=== PATIENT | male | born 1975 | race Caucasian/White ===

== ENCOUNTER 2020-05-27 09:13 | Outpatient (CLI) | payer OTHER, SELFPAY ==
[2020-05-27 09:27] LABS: Basophils Absolute Auto 0.01 K/mm3 (0.00-0.10); Basophils Percent Auto 0.2 % (0.0-1.0); Eosinophils Absolute Auto 0.11 K/mm3 (0.02-0.50); Eosinophils Percent Auto 1.8 % (1.0-6.0); Hematocrit 40.4 % (40.0-54.0); Hemoglobin 14.7 g/dL (14.0-18.0); Immature Granulocyte Absolute 0.02 K/mm3 (0.00-0.00); Immature Granulocyte Percent A 0.3 % (0.0-0.0); Lymphocytes Absolute Auto 1.49 K/mm3 (1.10-4.50); Lymphocytes Percent Auto 24.2 % (18.0-42.0); Mean Corpuscular HGB Conc 36.4 g/dL (32.0-36.0); Mean Corpuscular Hemoglobin 34.2 pg (27.0-31.0); Mean Platelet Volume 8.6 fl (8.7-11.0); Monocytes Absolute Auto 0.43 K/mm3 (0.10-0.90); Neutrophils Absolute Auto 4.1 K/mm3 (1.7-7.2); Neutrophils Percent Auto 66.5 % (50.0-70.0); Platelet Count Result 185 K/mm3 (150-420); Red Cell Distribution Width 11.9 % (11.6-14.4); White Blood Count 6.2 K/mm3 (4.8-10.8)
[2020-05-27 09:33] LABS: Appearance Urine Clear (Clear); Bilirubin Urine Negative (Negative); Color Urine Yellow (Yellow); Glucose Urine UA Negative (Negative); Ketones Urine Negative (Negative); Leukocyte Esterase Ur Negative (Negative); Nitrate Urine Negative (Negative); Protein Urine Negative (Negative); Specific Grav Ur <= 1.005 (1.010-1.020); Urobilinogen Urine 0.2 mg/dL (0.2-1.0)
[2020-05-27 09:49] LABS: Add Urine Microscopic? YES; Bacteria Urine None seen /hpf; Blood Urine Trace-Intact (Negative); RBC Urine None seen /hpf (0-2); Squamous Epithelial Cell Urine Rare /hpf (Few); WBC Urine None seen /hpf (0-3)
[2020-05-27 10:53] LABS: Alanine Aminotransferase 46 U/L (16-63); Albumin Level 4.6 g/dL (3.4-5.0); Alkaline Phosphatase 70 U/L (46-116); Anion Gap 9 mmol/L (8-16); Aspartate Amino Transferase 23 U/L (15-37); Bilirubin,Total 0.4 mg/dL (0.00-1.00); Blood Urea Nitrogen 22 mg/dL (7-18); Calcium 8.6 mg/dL (8.5-10.1); Carbon Dioxide 28 mmol/L (21-32); Chloride 103 mmol/L (98-108); Cholesterol 150 mg/dL (0-200); Estimated Glomerular Filt Rate > 60; Glucose 99 mg/dL (70-99); HDL Direct 24 mg/dL (40-60); Osmolality Calculated 293 mOsm/kg (285-295); Potassium 3.8 mmol/L (3.5-5.1); Sodium 140 mmol/L (136-145); Thyroid Stimulating Hormone 1.46 uIU/mL (0.36-3.74); Total Protein 7.2 g/dL (6.4-8.2)
[2020-05-27 10:57] LABS: LDL Cholesterol Calculated 28 mg/dL (<130); Triglycerides 489 mg/dL (0-150)
[2020-05-27 11:10] LABS: LDL Cholesterol Direct 59 mg/dL (0-130)
== END 2020-05-27 09:14 | disposition home or self-care (01) ==
PROVIDERS: PCP Internal Medicine; Visit Provider Internal Medicine
DX: Z00.00 Encounter for general adult medical examination without abnormal findings (principal); I10 Essential (primary) hypertension
CPT/HCPCS: 36415; 80053; 80061; 81001; 83721; 84443; 85025

== ENCOUNTER 2022-06-06 08:59 | Outpatient (CLI) | payer OTHER, SELFPAY ==
[2022-06-06 09:12] LABS: Appearance Urine Clear (Clear); Basophils Absolute Auto 0.01 K/mm3 (0.00-0.10); Basophils Percent Auto 0.2 % (0.0-1.0); Bilirubin Urine Negative (Negative); Eosinophils Absolute Auto 0.11 K/mm3 (0.02-0.50); Eosinophils Percent Auto 1.7 % (1.0-6.0); Glucose Urine UA Negative (Negative); Hematocrit 39.3 % (40.0-54.0); Hemoglobin 14.5 g/dL (14.0-18.0); Immature Granulocyte Absolute 0.03 K/mm3 (0.00-0.00); Immature Granulocyte Percent A 0.5 % (0.0-0.0); Ketones Urine Negative (Negative); Leukocyte Esterase Ur Negative (Negative); Lymphocytes Absolute Auto 1.61 K/mm3 (1.10-4.50); Lymphocytes Percent Auto 25.1 % (18.0-42.0); Mean Corpuscular HGB Conc 36.9 g/dL (32.0-36.0); Mean Corpuscular Hemoglobin 34.2 pg (27.0-31.0); Mean Corpuscular Volume 92.7 fL (78.0-102.0); Mean Platelet Volume 8.6 fl (8.7-11.0); Monocytes Percent Auto 7.8 % (2.0-11.0); Neutrophils Absolute Auto 4.2 K/mm3 (1.7-7.2); Neutrophils Percent Auto 64.7 % (50.0-70.0); Nitrate Urine Negative (Negative); Platelet Count Result 192 K/mm3 (150-420); Protein Urine Negative (Negative); Red Blood Count 4.24 M/mm3 (4.70-6.10); Red Cell Distribution Width 11.7 % (11.6-14.4); Specific Grav Ur <= 1.005 (1.010-1.020); Urobilinogen Urine 0.2 mg/dL (0.2-1.0); White Blood Count 6.4 K/mm3 (4.8-10.8)
[2022-06-06 09:16] LABS: Add Urine Microscopic? YES; Bacteria Urine None seen /hpf; Blood Urine Trace-Intact (Negative); Color Urine Light Yellow (Yellow); RBC Urine None seen /hpf (0-2); WBC Urine None seen /hpf (0-3)
[2022-06-06 10:12] LABS: Alanine Aminotransferase 52 U/L (16-63); Albumin Level 4.5 g/dL (3.4-5.0); Alkaline Phosphatase 79 U/L (46-116); Anion Gap 9 mmol/L (8-16); Aspartate Amino Transferase 24 U/L (15-37); Bilirubin Direct 0.1 mg/dL (0-0.2); Bilirubin,Total 0.5 mg/dL (0.00-1.00); Blood Urea Nitrogen 18 mg/dL (7-18); Calcium 8.6 mg/dL (8.5-10.1); Carbon Dioxide 27 mmol/L (21-32); Chloride 101 mmol/L (98-108); Estimated Glomerular Filt Rate > 60; Glucose 102 mg/dL (70-99); Osmolality Calculated 285 mOsm/kg (285-295); Potassium 4.3 mmol/L (3.5-5.1); Sodium 137 mmol/L (136-145); Thyroid Stimulating Hormone 1.73 uIU/mL (0.36-3.74); Total Protein 7.3 g/dL (6.4-8.2)
[2022-06-06 12:24] LABS: Hemoglobin A1C 5.1 % (<5.7)
[2022-06-06 14:05] LABS: Cholesterol 158 mg/dL (0-200); HDL Direct 31 mg/dL (40-60); LDL Cholesterol Calculated 59 mg/dL (<130); Triglycerides 338 mg/dL (0-150)
== END 2022-06-06 09:00 | disposition home or self-care (01) ==
LOC: CHSLAB 09:02
PROVIDERS: PCP Internal Medicine; Visit Provider Internal Medicine
DX: Z00.00 Encounter for general adult medical examination without abnormal findings (principal); I10 Essential (primary) hypertension; E78.5 Hyperlipidemia, unspecified; R73.9 Hyperglycemia, unspecified
CPT/HCPCS: 36415; 80053; 80061; 80076; 81001; 82248; 83036; 84443; 85025

== ENCOUNTER 2024-06-17 09:31 | Outpatient (CLI) | payer OTHER, SELFPAY ==
[2024-06-17 09:46] LABS: Basophils Absolute Auto 0.03 K/mm3 (0.00-0.10); Basophils Percent Auto 0.4 % (0.0-1.0); Eosinophils Absolute Auto 0.13 K/mm3 (0.02-0.50); Eosinophils Percent Auto 1.6 % (1.0-6.0); Hemoglobin 14.4 g/dL (14.0-18.0); Immature Granulocyte Absolute 0.06 K/mm3 (0.00-0.00); Immature Granulocyte Percent A 0.7 % (0.0-0.0); Lymphocytes Absolute Auto 1.74 K/mm3 (1.10-4.50); Lymphocytes Percent Auto 21.4 % (18.0-42.0); Mean Corpuscular HGB Conc 36.9 g/dL (32-36); Mean Corpuscular Hemoglobin 34.3 pg (27.0-31.0); Mean Corpuscular Volume 92.9 fL (78.0-102.0); Mean Platelet Volume 8.6 fl (8.7-11.0); Monocytes Absolute Auto 0.62 K/mm3 (0.10-0.90); Monocytes Percent Auto 7.6 % (2.0-11.0); Neutrophils Absolute Auto 5.56 K/mm3 (1.70-7.20); Neutrophils Percent Auto 68.3 % (50.0-70.0); Platelet Count Result 180 K/mm3 (150-420); Red Cell Distribution Width 11.8 % (11.6-14.4); White Blood Count 8.1 K/mm3 (4.8-10.8)
[2024-06-17 09:52] LABS: Add Urine Microscopic? NO; Appearance Urine Clear (Clear); Bilirubin Urine Negative (Negative); Blood Urine Trace-intact (Negative); Color Urine Light Yellow (Yellow); Glucose Urine UA Negative (Negative); Ketones Urine Negative (Negative); Leukocyte Esterase Ur Negative (Negative); Nitrate Urine Negative (Negative); Protein Urine Negative (Negative); Specific Grav Ur <= 1.005 (1.010-1.020); Urobilinogen Urine 0.2 mg/dL (0.2-1.0)
[2024-06-17 11:00] LABS: Alanine Aminotransferase 57 U/L (16-63); Albumin Level 4.3 g/dL (3.4-5.0); Alkaline Phosphatase 98 U/L (46-116); Anion Gap 9 mmol/L (4-12); Aspartate Amino Transferase 20 U/L (15-37); Bilirubin,Total 0.7 mg/dL (0.00-1.00); Blood Urea Nitrogen 17 mg/dL (7-18); CRP 1.4 mg/dL (0.0-0.9); Calcium 9.1 mg/dL (8.5-10.1); Carbon Dioxide 29 mmol/L (21-32); Chloride 100 mmol/L (98-108); Cholesterol 187 mg/dL (0-200); Estimated Glomerular Filt Rate > 60; Glucose 103 mg/dL (70-99); HDL Direct 37 mg/dL (40-60); LDL Cholesterol Calculated 59 mg/dL (<130); Osmolality Calculated 287 mOsm/kg (285-295); Potassium 4.8 mmol/L (3.5-5.1); Sodium 138 mmol/L (136-145); Thyroid Stimulating Hormone 2.39 uIU/mL (0.36-3.74); Total Protein 7.2 g/dL (6.4-8.2); Triglycerides 454 mg/dL (0-150)
[2024-06-17 11:03] LABS: LDL Cholesterol Direct 69 mg/dL (0-130)
[2024-06-17 12:15] LABS: Uric Acid 6.8 mg/dL (3.5-7.2)
== END 2024-06-17 09:32 | disposition home or self-care (01) ==
LOC: CHSLAB 09:34
PROVIDERS: PCP Internal Medicine; Visit Provider Internal Medicine
DX: Z00.00 Encounter for general adult medical examination without abnormal findings (principal); M10.9 Gout, unspecified; I10 Essential (primary) hypertension
CPT/HCPCS: 36415; 80053; 80061; 81003; 83721; 84443; 84550; 85025; 86140

== ENCOUNTER 2025-06-19 06:51 | Outpatient (CLI) | payer OTHER, SELFPAY ==
[2025-06-19 07:06] LABS: Hematocrit 37.4 % (40.0-54.0); Hemoglobin 13.3 g/dL (14.0-18.0); Mean Corpuscular HGB Conc 35.6 g/dL (32-36); Mean Corpuscular Hemoglobin 33.7 pg (27.0-31.0); Mean Corpuscular Volume 94.7 fL (78.0-102.0); Platelet Count Result 170 K/mm3 (150-420); Red Blood Count 3.95 M/mm3 (4.70-6.10); White Blood Count 5.7 K/mm3 (4.8-10.8)
[2025-06-19 07:07] LABS: Add Urine Microscopic? NO; Appearance Urine Clear (Clear); Glucose Urine UA Negative (Negative); Leukocyte Esterase Ur Negative (Negative); Nitrate Urine Negative (Negative); Specific Grav Ur 1.015 (1.010-1.020)
[2025-06-19 07:48] LABS: Alanine Aminotransferase 66 U/L (6-50); Albumin Level 4.8 g/dL (3.5-5.1); Alkaline Phosphatase 60 U/L (38-126); Anion Gap 8 mmol/L (4-12); Aspartate Amino Transferase 49 U/L (17-59); Bilirubin,Total 1.7 mg/dL (0.2-1.3); Blood Urea Nitrogen 20 mg/dL (9-20); Calcium 9.4 mg/dL (8.4-10.2); Carbon Dioxide 30 mmol/L (22-30); Chloride 104 mmol/L (98-107); Cholesterol 180 mg/dL (0-200); Estimated Glomerular Filt Rate > 60; Glucose 111 mg/dL (65-110); HDL Direct 38 mg/dL; Osmolality Calculated 297 mOsm/kg (285-295); Potassium 5.0 mmol/L (3.4-5.0); Sodium 142 mmol/L (137-145); Total Protein 7.0 g/dL (6.3-8.2); Triglycerides 370 mg/dL (<150); Uric Acid 7.9 mg/dL (3.5-8.5)
[2025-06-19 08:18] LABS: Thyroid Stimulating Hormone 3.010 uIU/mL (0.465-4.680)
[2025-06-22 10:05] LABS: Hepatitis B Surface Antigen Negative (Negative)
[2025-06-22 10:11] LABS: HAV RESULT Negative (Negative); Hepatitis B Core IgM Result Negative (Negative)
== END 2025-06-19 06:52 | disposition home or self-care (01) ==
LOC: CHSLAB 06:53
PROVIDERS: PCP Internal Medicine; Visit Provider Internal Medicine
DX: Z00.00 Encounter for general adult medical examination without abnormal findings (principal); I10 Essential (primary) hypertension; M10.9 Gout, unspecified; R94.5 Abnormal results of liver function studies
CPT/HCPCS: 36415; 80053; 80061; 80074; 81003; 84443; 84550; 85027

== ENCOUNTER 2025-06-23 14:46 | Outpatient (CLI) | payer OTHER, SELFPAY ==
--- NOTE | ~2025-06-23 | CT_ITS ---
EXAM/PROCEDURE: CT abdomen pelvis wo con HISTORY: other microscopic hematuria COMPARISON: None available. TECHNIQUE: Noncontrast CT of the abdomen and pelvis FINDINGS: No hydroureteronephrosis. No obvious renal masses seen. No urolithiasis identified. Urinary bladder is nondistended but no obvious or gross acute abnormality seen. Small urachal remnant noted. The bowel gas pattern is nonobstructive with no free air free fluid or pneumatosis. Normal size aorta appendix and gallbladder Liver spleen pancreas adrenal glands and stomach appear within normal limits. Lung bases clear and heart size normal. Mild degenerative changes in the lumbar spine and hips with no acute or aggressive bony process. Small bone island right pelvis image 89 series 601. Mild scattered atherosclerotic calcification. No bulky mesenteric or retroperitoneal lymphadenopathy or masses. Prostate is mildly enlarged. Tiny fat-containing inguinal hernias. IMPRESSION: Directed noncontrast exam demonstrating no focal source for hematuria. No acute abnormality identified. Chronic findings as detailed above. Reviewed, dictated and finalized at location A. [facility] IMPRESSION: Directed noncontrast exam demonstrating no focal source for hematur ia. No acute abnormality identified. Chronic findings as detailed above.
== END 2025-06-23 14:47 | disposition home or self-care (01) ==
LOC: CHSIMG 14:47
PROVIDERS: PCP Internal Medicine; Visit Provider Internal Medicine
DX: R31.29 Other microscopic hematuria (principal)
CPT/HCPCS: 74176

== ENCOUNTER 2025-06-27 09:56 | Outpatient (CLI) | payer OTHER, SELFPAY ==
--- NOTE | 2025-06-27 | CONSULT_PTH ---
PATIENT: Taiwo Wood LOC: [facility]#:[id number] AGE/SX: 49/M ROOM: RE06/27/[address]: Venkat Armijo MD : 1975 BED: DIS: 06/27/2025 SPEC #: [id number] RECD: 06/27/25 12:03 STATUS: ELBA RERoney #: [id number] TUNG: 06/27/25 00:[address]: Venkat Armijo DEPT: [facility] Consult RECD BY: Siobhan Zamarripa MLT, ([facility]) Tissues: A - Peripheral Smear Procedures: Hematology Consult
--- NOTE | 2025-06-27 | CY_PTH ---
PATIENT: Taiwo Wood LOC: [facility] U#:[id number] AGE/SX: 49/M ROOM: RE06/27/[address]: Venkat Armijo MD : 1975 BED: DIS: 06/27/2025 SPEC #: [id number] RECD: 06/27/25 12:03 STATUS: ELBA RERoney #: [id number] TUNG: 06/27/25 00:[address]: Venkat Armijo DEPT: [facility] Cytology RECD BY: Siobhan Zamarripa MLT, ([facility]) Tissues: A - Thin Prep Non-Gyne Procedures: Thin Prep Non-department of natural resources officer
[2025-06-27 11:34] LABS: Hematocrit 36.0 % (40.0-54.0); Hemoglobin 13.1 g/dL (14.0-18.0); Immature Reticulocyte Fraction 9.9 % (2.0-16.52); Mean Corpuscular HGB Conc 36.4 g/dL (32-36); Mean Corpuscular Hemoglobin 34.1 pg (27.0-31.0); Mean Corpuscular Volume 93.8 fL (78.0-102.0); Platelet Count Result 178 K/mm3 (150-420); Red Blood Count 3.84 M/mm3 (4.70-6.10); Reticulocyte Hemoglobin Conten 37.6 pg (28.0-35.0); Reticulocytes Absolute 0.11 M/mm3 (0.02-0.10); White Blood Count 5.2 K/mm3 (4.8-10.8)
[2025-06-27 11:38] LABS: Add Urine Microscopic? NO; Appearance Urine Clear (Clear); Glucose Urine UA Negative (Negative); Leukocyte Esterase Ur Negative (Negative); Nitrate Urine Negative (Negative); Specific Grav Ur 1.010 (1.010-1.020)
[2025-06-27 11:40] LABS: Iron 152 ug/dL (49-181)
[2025-06-27 11:45] LABS: Hemoglobin A1C 4.8 % (<5.7)
[2025-06-27 11:51] LABS: Percent Iron Saturation 61 % (20-50)
[2025-06-27 12:12] LABS: Prostate Specific Antigen 1.8 ng/mL (< OR = 4.0)
[2025-06-27 12:46] LABS: Ferritin > 1000.00 ng/mL (17.9-464)
[2025-06-29 13:08] LABS: Folate, Hemolysate 378.0 ng/mL (Not Estab.); Folate, RBC 967 ng/mL (>498); Hematocrit 39.1 % (37.5-51.0)
[2025-06-29 15:00] LABS: CRP < 0.5 mg/dL (<1.0)
== END 2025-06-27 09:57 | disposition home or self-care (01) ==
PROVIDERS: PCP Internal Medicine; Visit Provider Internal Medicine
DX: R31.9 Hematuria, unspecified (principal); D64.9 Anemia, unspecified; R73.03 Prediabetes
CPT/HCPCS: 36415; 81003; 82728; 82747; 83036; 83540; 83550; 83921; 84153; 85027; 85046; 86140; 87086; 88112

== ENCOUNTER 2025-07-24 09:17 | Outpatient (CLI) | payer OTHER, SELFPAY | END 2025-07-24 09:18 | disposition home or self-care (01) | PROVIDERS: PCP Internal Medicine | DX: R79.89 Other specified abnormal findings of blood chemistry (principal) | CPT/HCPCS: 81256 ==